=== PATIENT | female | born 1990 | race Caucasian/White ===

== ENCOUNTER 2018-03-03 19:12 | Emergency (ER) | payer OTHER ==
[2018-03-03] MEDS ORDERED: DIPHENHYDRAMINE 50 MG/ML VIAL ONE ×2 (20:01→20:08)
[2018-03-03] MEDS ORDERED: METHYLPREDNISOLONE 125 MG INJ ONE ×2 (20:01→20:08)
[2018-03-03] MEDS ORDERED: FAMOTIDINE 20 MG/2 ML VIAL IV ONE ×2 (20:01→20:09)
--- NOTE | 2018-03-03 20:52 | EDPHYS ---
Physician Documentation [facility] Name: Emile Willnigham Age: 27 yrs Sex: Female : 1990 Arrival Date: 03/03/2018 Time: 19:19 Bed 5 Private MD: ED Physician Darwin Wesley HPI: 03/03 20:16 This 27 yrs old Female presents to ER via Ambulatory with complaints of tw4 Allergic Reaction. 20:16 The patient presents with itching, swelling of the lips. Onset: The symptoms/episode tw4 began/occurred today. Associated signs and symptoms: The patient has no apparent associated signs or symptoms. Possible causes: cleaning products. At home the patient or guardian has treated the symptoms with nothing. Severity of symptoms: At their worst the symptoms were moderate in the emergency department the symptoms are unchanged. The patient has not experienced similar symptoms in the past. 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 - Social history:: Smoking status: Patient/guardian denies using tobacco. ROS: 20:16 Constitutional: Negative for fever, chills, and weight loss, Cardiovascular: Negative tw4 for chest pain, palpitations, and edema, Respiratory: Negative for shortness of breath, cough, wheezing, and pleuritic chest pain, Abdomen/GI: Negative for abdominal pain, nausea, vomiting, diarrhea, and constipation, Neuro: Negative for headache, weakness, numbness, tingling, and seizure. 20:16 Skin: Positive for rash, swelling. Exam: 20:16 Constitutional: This is a well developed, well nourished patient who is awake, alert, tw4 and in no acute distress. Head/Face: Normocephalic, atraumatic. Chest/axilla: Normal chest wall appearance and motion. Nontender with no deformity. No lesions are appreciated. Cardiovascular: Regular rate and rhythm with a normal S1 and S2. No gallops, murmurs, or rubs. Normal PMI, no JVD. No pulse deficits. Respiratory: Lungs have equal breath sounds bilaterally, clear to auscultation and percussion. No rales, rhonchi or wheezes noted. No increased work of breathing, no retractions or nasal flaring. Abdomen/GI: Soft, non-tender, with normal bowel sounds. No distension or tympany. No guarding or rebound. No evidence of tenderness throughout. 20:16 MS/ Extremity: Pulses equal, no cyanosis. Neurovascular intact. Full, normal range of motion. Neuro: Awake and alert, GCS 15, oriented to person, place, time, and situation. Cranial nerves II-XII grossly intact. Motor strength 5/5 in all extremities. Sensory grossly intact. Cerebellar exam normal. Normal gait. 20:16 ENT: Mouth: Lips: mild swelling, Posterior pharynx: is normal. Vital Signs: 19:24 BP 143 / 100; Pulse 103; Resp 18; Temp 98.4(TE); Pulse Ox 100% on R/A; Weight 70.31 kg ak1 (R); Height 5 ft. 7 in. (170.18 cm) (R); Pain 1/10; 20:21 BP 129 / 101; Pulse 79; Resp 18; Pulse Ox 100% on R/A; ea 21:00 BP 123 / 86; Pulse 68; Resp 18; Pulse Ox 100% on R/A; ea 19:24 Body Mass Index 24.28 (70.31 kg, 170.18 cm) ak1 MDM: 20:01 Patient medically screened. tw4 20:52 Differential diagnosis: anaphylaxis, angioedema, Arrhythmias urticaria. Data reviewed: tw4 vital signs, nurses notes. Counseling: I had a detailed discussion with the patient and/or guardian regarding: the historical points, exam findings, and any diagnostic results supporting the discharge/admit diagnosis. Special discussion: I discussed with the patient/guardian in detail that at this point there is no indication for admission to the hospital. It is understood, however, that if the symptoms persist or worsen the patient needs to return immediately for re-evaluation. 03/03 19:42 Order name: Saline Lock; Complete Time: 20:16 tw4 Administered Medications: 20:13 Drug: Pepcid 20 mg Route: IVP; Site: left antecubital; ea 21:00 Follow up: Response: No adverse reaction ea 20:14 Drug: Benadryl 12.5 mg Route: IVP; Site: left antecubital; ea 21:00 Follow up: Response: No adverse reaction ea 20:15 Drug: SOLU-Medrol 125 mg Route: IVP; Site: left antecubital; ea 21:18 Follow up: Response: No adverse reaction ea Disposition: 03/03/18 20:51 Discharged to Home. Impression: Urticaria, unspecified. - Condition is Stable. - Discharge Instructions: Hives, Angioedema. - Prescriptions for Medrol (Tam) 4 mg Oral Tablets, Dose Pack - take 1 tablet by ORAL route as directed - follow package instructions; 1 packet. - Work release form, Medication Reconciliation Form, Thank You Letter, Antibiotic Education, Prescription Opioid Use form. - Follow up: Private Physician; When: As needed; Reason: Recheck today's complaints, Continuance of care, Re-evaluation by your physician. - Problem is new. - Symptoms have improved. Signatures: Leonor Etienne RN RN ak1 Shelley Branch RN RN Darwin Quinn MD MD tw4 Corrections: (The following items were deleted from the chart) 21:17 20:51 03/03/2018 20:51 Discharged to Home. Impression: Urticaria, unspecified. ea Condition is Stable. Forms are Medication Reconciliation Form, Thank You Letter, Antibiotic Education, Prescription Opioid Use. Follow up: Private Physician; When: As needed; Reason: Recheck today's complaints, Continuance of care, Re-evaluation by your physician. Problem is new. Symptoms have improved. tw4
--- NOTE | 2018-03-03 20:52 | ER ---
Nurse's Notes [facility] Name: Emile Willingham Age: 27 yrs Sex: Female : 1990 Arrival Date: 03/03/2018 Time: 19:19 Bed 5 Private MD: Diagnosis: Urticaria, unspecified Presentation: 03/03 19:19 Presenting complaint: Patient states: facial swelling X 1hour. 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 pt with selling noted to bilateral eyes, lips. no resp distress noted. pt with hives to face. pt had steroid injections 02/20/18 and 02/18/18. pt dx allergic urticaria. Transition of care: patient was not received from another setting of care. Onset: The symptoms/episode began/occurred last week. Anaphylaxis evaluation, the patient reports or I have noted the following symptoms which indicate a significant risk of anaphylaxis:. Onset of symptoms was March 03, 2018. Initial Sepsis Screen: Does the patient meet any 2 criteria? No. Patient's initial sepsis screen is negative. Does the patient have a suspected source of infection? No. Patient's initial sepsis screen is negative. Care prior to arrival: None. 19:19 Method Of Arrival: Ambulatory ak1 19:19 Acuity: MERCED 4 ak1 Triage Assessment: 19:24 General: Appears in no apparent distress. Behavior is calm, cooperative. Pain: Denies ak1 pain. EENT: swelling to lips and bilateral eyes. Neuro: No deficits noted. Cardiovascular: No deficits noted. Respiratory: No deficits noted. GI: No signs and/or symptoms were reported involving the gastrointestinal system. : No signs and/or symptoms were reported regarding the genitourinary system. Derm: Reports hives X1 month. Musculoskeletal: No signs and/or symptoms reported regarding the musculoskeletal system. 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 - Social history:: Smoking status: Patient/guardian denies using tobacco. Screenin:30 Abuse screen: Denies threats or abuse. Nutritional screening: No deficits noted. ea Tuberculosis screening: No symptoms or risk factors identified. Fall Risk None identified. Assessment: 20:28 General: Appears in no apparent distress. Behavior is cooperative, anxious. Pain: ea Denies pain. Neuro: Level of Consciousness is awake, alert, obeys commands, Oriented to person, place, time, situation. Cardiovascular: Patient's skin is warm and dry. Respiratory: Airway is patent Respiratory effort is even, unlabored, Respiratory pattern is regular, symmetrical, Breath sounds are clear bilaterally. GI: No signs and/or symptoms were reported involving the gastrointestinal system. : No signs and/or symptoms were reported regarding the genitourinary system. EENT: No signs and/or symptoms were reported regarding the EENT system. EENT: No signs and/or symptoms were reported regarding the EENT system. Derm: swelling noted to upper and lower lips, pt denies SOB. Reports "It may have been the change in detergent". 21:15 Reassessment: Patient and/or family updated on plan of care and expected duration. Pain ea level reassessed. Patient is alert, oriented x 3, equal unlabored respirations, skin warm/dry/pink. Discharge instructions given to patient, verbalized the understanding of instruction. Patient states feeling better. Patient states symptoms have improved. Vital Signs: 19:24 BP 143 / 100; Pulse 103; Resp 18; Temp 98.4(TE); Pulse Ox 100% on R/A; Weight 70.31 kg ak1 (R); Height 5 ft. 7 in. (170.18 cm) (R); Pain 1/10; 20:21 BP 129 / 101; Pulse 79; Resp 18; Pulse Ox 100% on R/A; ea 21:00 BP 123 / 86; Pulse 68; Resp 18; Pulse Ox 100% on R/A; ea 19:24 Body Mass Index 24.28 (70.31 kg, 170.18 cm) ak1 ED Course: 19:19 Patient arrived in ED. ak1 19:22 Triage completed. ak1 19:24 Arm band placed on Patient placed in waiting room, Patient notified of wait time. ak1 19:26 Patient has correct armband on for positive identification. ak1 19:41 Darwin Wesley MD is Attending Physician. tw4 20:13 Shelley Branch, RN is Primary Nurse. ea 21:16 No provider procedures requiring assistance completed. IV discontinued, intact, ea bleeding controlled, No redness/swelling at site. Pressure dressing applied. Administered Medications: 20:13 Drug: Pepcid 20 mg Route: IVP; Site: left antecubital; ea 21:00 Follow up: Response: No adverse reaction ea 20:14 Drug: Benadryl 12.5 mg Route: IVP; Site: left antecubital; ea 21:00 Follow up: Response: No adverse reaction ea 20:15 Drug: SOLU-Medrol 125 mg Route: IVP; Site: left antecubital; ea 21:18 Follow up: Response: No adverse reaction ea Outcome: 20:51 Discharge ordered by . tw4 21:16 Discharged to home ambulatory. ea 21:16 Condition: improved 21:16 Discharge instructions given to patient, Instructed on discharge instructions, follow up and referral plans. medication usage, Demonstrated understanding of instructions, follow-up care, medications, Prescriptions given X 1. 21:17 Patient left the ED. ea Signatures: Leonor Etienne RN RN ak1 Shelley Branch, RN RN Darwin Quinn MD MD tw4
== END 2018-03-03 21:17 | disposition home or self-care (01) ==
LOC: ER 19:12
DX: L50.9 Urticaria, unspecified (principal); Z88.1 Allergy status to other antibiotic agents
CPT/HCPCS: 96374; 96375; 99283; J2930

== ENCOUNTER 2019-10-24 09:56 | Emergency (ER) | payer BC ==
--- OUTSIDE RECORDS SUMMARY | 2019-10-24 09:58 | XMS REPORT ---
:1990 Author Organization [employer] Care Team Providers Name Role Phone Brigida Catalan Provider Role Unavailable Allergies No Known Allergies Problems Problem Type Condition Code Onset Dates Condition Status Problem Acne vulgaris L70.0 Active Problem Yeast infection involving the B37.3 Active vagina and surrounding area Problem Mixed connective tissue disease M35.1 Active Problem PMS (premenstrual syndrome) N94.3 Active Problem Friction injury to skin T14.8XXA Active Problem Encounter for BCP ( control Z30.011 Active pills) initial prescription Problem Foreign body finger S60.459A Active Problem Foreign body of finger of right S60.459A Active hand, initial encounter Problem BCP ( control pills) Z30.011 Active initiation Problem Encounter for gynecological Z01.419 Active examination without abnormal finding Problem Lupus M32.9 Active Medications No Known Medications Results No Known Results Summary Purpose eClinicalWorks Submission
--- OUTSIDE RECORDS SUMMARY | 2019-10-24 09:58 | XMS REPORT ---
:1990 Author Organization [employer] Care Team Providers Name Role Phone Brigida Catalan Provider Role Unavailable Allergies, Adverse Reactions, Alerts Substance Reaction Event Type TriNessa (28) anger Drug Allergy Plaquenil mood swings Drug Allergy Problems Problem Type Condition Code Onset Dates Condition Status Problem Mixed connective tissue disease M35.1 Active Problem Foreign body of finger of right S60.459A Active hand, initial encounter Problem Yeast infection involving the B37.3 Active vagina and surrounding area Problem Friction injury to skin T14.8XXA Active Problem Foreign body finger S60.459A Active Problem Lesion of labia N90.89 Active Problem Lupus M32.9 Active Problem BCP ( control pills) Z30.011 Active initiation Problem Encounter for BCP ( control Z30.011 Active pills) initial prescription Problem Encounter for gynecological Z01.419 Active examination without abnormal finding Assessment Lesion of labia N90.89 Active Assessment Acne vulgaris L70.0 Active Assessment PMS (premenstrual syndrome) N94.3 Active Problem PMS (premenstrual syndrome) N94.3 Active Assessment Lupus M32.9 Active Problem Acne vulgaris L70.0 Active Medications Medication Code Code Instructions Start End Status Dosage System Date Date CycloSPORINE ND 98333341810 50 MG Orally Active as directed Modified BID Norgestim-Eth [facility] 72259734299 0.18/0.215/0.25 Active TAKE 1 TABLET Estrad MG-35 MCG BY MOUTH Triphasic Orally Once a EVERY DAY day Folic Acid ND 79225225370 1 MG Orally Active 1 tablet Once a day Ibuprofen ND 65420084966 800 MG Orally May 14, Active 1 tablet with Three times a 2016 food or milk day prn pain as needed Zyrtec Allergy ND 17654185710 10 MG Orally Active 2 tablets Once a day Kalpana-D 24 NDC 0 180mg By mouth Active 2 tabs Hour Daily Clindamycin ND 72974528658 1 % Externally Active 1 application Phosphate Once a day Centrum ND 79100781570 - Orally Daily April 09, 2015 Results No Known Results Summary Purpose eClinicalWorks Submission
--- NOTE | 2019-10-24 11:02 | EDPHYS ---
Physician Documentation [facility] Name: Emile Willingham Age: 29 yrs Sex: Female : 1990 Arrival Date: 10/24/2019 Time: 09:59 Bed 14 Private MD: ED Physician Raf Arizmendi HPI: 10/24 10:50 This 29 yrs old Female presents to ER via Ambulatory with complaints of pm1 Infection to biopsy sites. 10:50 Patient presents to ED for recheck of: biopsy site. The affected area is on the groin. pm1 Previous treatment: Biopsy at two vulval areas on Saturday by Dr. Dennis . The patient has not experienced similar symptoms in the past. Patient concerned that there might be an infection. Noticed some discharge yesterday. Has been using warm baths and reports improvement in swelling to vulval area, which was expected. No fever or redness. 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 - Social history:: Smoking status: Patient/guardian denies using tobacco. - Ebola Screening: : No symptoms or risks identified at this time. ROS: 10:50 Constitutional: Negative for fever, chills, and weight loss, Cardiovascular: Negative pm1 for chest pain, palpitations, and edema, Respiratory: Negative for shortness of breath, cough, wheezing, and pleuritic chest pain, Abdomen/GI: Negative for abdominal pain, nausea, vomiting, diarrhea, and constipation, Back: Negative for injury and pain. 10:50 MS/Extremity: Negative for injury and deformity, Skin: Negative for injury, rash, and discoloration, Neuro: Negative for headache, weakness, numbness, tingling, and seizure. 10:50 : Positive for of the groin, swelling, Negative for urinary symptoms, burning with urination, difficulty urinating, vaginal bleeding, vaginal itching. 10:50 All other systems are negative. pm1 Exam: 10:50 Constitutional: This is a well developed, well nourished patient who is awake, alert, pm1 and in no acute distress. Head/Face: Normocephalic, atraumatic. 10:50 Chest/axilla: Normal chest wall appearance and motion. Nontender with no deformity. pm1 No lesions are appreciated. Cardiovascular: Regular rate and rhythm with a normal S1 and S2. No gallops, murmurs, or rubs. Normal PMI, no JVD. No pulse deficits. Respiratory: Lungs have equal breath sounds bilaterally, clear to auscultation and percussion. No rales, rhonchi or wheezes noted. No increased work of breathing, no retractions or nasal flaring. Abdomen/GI: Soft, non-tender, with normal bowel sounds. No distension or tympany. No guarding or rebound. No evidence of tenderness throughout. Back: No spinal tenderness. No costovertebral tenderness. Full range of motion. 10:50 Skin: Warm, dry with normal turgor. Normal color with no rashes, no lesions, and no evidence of cellulitis. MS/ Extremity: Pulses equal, no cyanosis. Neurovascular intact. Full, normal range of motion. 10:50 : Pelvic Exam: External exam: no appreciated Bartholin's cyst, no erythema, not excoriated, biopsy sites without any redness, warmth, or discharge. Sutures intact. Granulation tissue present in biopsy sites, PJ RN as it consulting director. 10:50 Neuro: Orientation: is normal, Motor: is normal, moves all fours, Sensation: is normal, no obvious gross deficits. Vital Signs: 10:09 BP 138 / 81; Pulse 81; Resp 17 S; Temp 96.4(O); Pulse Ox 100% on R/A; Weight 72.57 kg jl7 (R); Height 5 ft. 7 in. (170.18 cm) (R); Pain 3/10; 11:23 BP 127 / 79; Pulse 75; Resp 16; Temp 98; Pulse Ox 99% ; bp 10:09 Body Mass Index 25.06 (72.57 kg, 170.18 cm) jl7 MDM: 10:11 Patient medically screened. pm1 10:50 Physician consultation: Sanam Dennis MD regarding consult, patient's condition, pm1 Called Dr. Dennis to inform her that her patient was here with concerns she might have an infection at her two biopsy sites. Two biopsy sites without any signs of infection present, no redness, discharge, fever. Since no signs of infection, no need for systemic antibiotics. Recommends herlinda care and topical triple antibiotic. Patient may call her answering service at anytime and call the office if any issues on Saturday. Patient has appointment for follow up on 11/03. 10:56 Data reviewed: vital signs. Data interpreted: Pulse oximetry: on room air is 100 %. pm1 Interpretation: normal. Counseling: I had a detailed discussion with the patient and/or guardian regarding: the historical points, exam findings, and any diagnostic results supporting the discharge/admit diagnosis, the need for outpatient follow up, Jeannie for any issues and keep follow up on 11/03, to return to the emergency department if symptoms worsen or persist or if there are any questions or concerns that arise at home. Administered Medications: No medications were administered Disposition: 10/24/19 10:58 Discharged to Home. Impression: Other acute postprocedural pain. - Condition is Stable. - Discharge Instructions: Skin Biopsy, Care of a Perineal Tear. - Prescriptions for Tylenol- Codeine #3 300-30 mg Oral Tablet - take 2 tablets by ORAL route every 6 hours As needed; 20 tablet. - Medication Reconciliation Form, Thank You Letter, Antibiotic Education, Prescription Opioid Use form. - Follow up: Emergency Department; When: As needed; Reason: Worsening of condition. Follow up: Private Physician; When: 2 - 3 days; Reason: Recheck today's complaints, Continuance of care, Re-evaluation by your physician. - Problem is new. - Symptoms have improved. Addendum: 10/26/2019 09:26 Co-signature as Attending Physician, Raf Arizmendi MD I agree with the assessment and c puga plan of care. Signatures: Raf Arizmendi MD MD cha Marinas, Patrick, NP OIL AND GAS FIELD TECHNICIAN pm1 Leandro Deshpande RN RN jl7 George Rodas RN RN bp Corrections: (The following items were deleted from the chart) 10/24 11:27 10:58 10/24/2019 10:58 Discharged to Home. Impression: Other acute postprocedural pain. bp Condition is Stable. Forms are Medication Reconciliation Form, Thank You Letter, Antibiotic Education, Prescription Opioid Use. Follow up: Emergency Department; When: As needed; Reason: Worsening of condition. Follow up: Private Physician; When: 2 - 3 days; Reason: Recheck today's complaints, Continuance of care, Re-evaluation by your physician. Problem is new. Symptoms have improved. pm1
--- NOTE | 2019-10-24 11:02 | ER ---
Nurse's Notes [facility] Name: Emile Willingham Age: 29 yrs Sex: Female : 1990 Arrival Date: 10/24/2019 Time: 09:59 Bed 14 Private MD: Diagnosis: Other acute postprocedural pain Presentation: 10/24 10:04 Presenting complaint: Patient states: On Saturday a vulvar biopsy by OB, 2 biopsy sites, jl7 the inner one looks infected, reports pain has been there since the procedure. Transition of care: patient was not received from another setting of care. Onset of symptoms was October 20, 2019. Risk Assessment: Do you want to hurt yourself or someone else? Patient reports no desire to harm self or others. Initial Sepsis Screen: Does the patient meet any 2 criteria? No. Patient's initial sepsis screen is negative. Does the patient have a suspected source of infection? No. Patient's initial sepsis screen is negative. Care prior to arrival: None. 10:04 Method Of Arrival: Ambulatory [facility] 10:04 Acuity: MERCED 3 jl7 Triage Assessment: 10:09 General: Appears in no apparent distress. uncomfortable, Behavior is calm, cooperative, jl7 appropriate for age. Pain: Complains of pain in groin Pain currently is 3 out of 10 on a pain scale. Is continuous. Neuro: Level of Consciousness is awake, alert, obeys commands, Oriented to person, place, time, situation. 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 - Social history:: Smoking status: Patient/guardian denies using tobacco. - Ebola Screening: : No symptoms or risks identified at this time. Screenin:21 Abuse screen: Denies threats or abuse. Denies injuries from another. Nutritional bp screening: No deficits noted. Tuberculosis screening: No symptoms or risk factors identified. Fall Risk None identified. Assessment: 10:10 General: SEE TRIAGE NOTE. bp 11:20 Reassessment: PT D/C HOME AMBULATORY, DX WITH POST-PROCEDURAL PAIN. bp Vital Signs: 10:09 BP 138 / 81; Pulse 81; Resp 17 S; Temp 96.4(O); Pulse Ox 100% on R/A; Weight 72.57 kg jl7 (R); Height 5 ft. 7 in. (170.18 cm) (R); Pain 3/10; 11:23 BP 127 / 79; Pulse 75; Resp 16; Temp 98; Pulse Ox 99% ; bp 10:09 Body Mass Index 25.06 (72.57 kg, 170.18 cm) jl7 ED Course: 09:59 Patient arrived in ED. mr 10:07 Triage completed. jl7 10:08 Mike Santos NP is PHCP. pm1 10:08 Raf Arizmendi MD is Attending Physician. pm1 10:09 Arm band placed on right wrist. jl7 10:11 George Rodas, RN is Primary Nurse. bp 11:21 Patient has correct armband on for positive identification. Bed in low position. Call bp light in reach. Side rails up X2. 11:21 No provider procedures requiring assistance completed. Patient did not have IV access bp during this emergency room visit. Wound care: to BIOPSY located on groin was dressed with 4X4s, Patient tolerated well. Administered Medications: No medications were administered Outcome: 10:58 Discharge ordered by MD. pm1 11:22 Discharged to home ambulatory. bp 11:22 Condition: stable 11:22 Discharge instructions given to patient, Instructed on discharge instructions, follow up and referral plans. medication usage, wound care, Demonstrated understanding of instructions, follow-up care, medications, wound care, Prescriptions given X 1. 11:27 Patient left the ED. bp Signatures: TrevinoLore mr Mike Santos, PERSONAL TRAINER PERSONAL TRAINER pm1 Leandro Deshpande RN RN jl7 George Rodas RN RN bp
[2019-10-24 11:52] VITALS: BP 127/79; TEMP 98; O2SAT 99
== END 2019-10-24 11:27 | disposition home or self-care (01) ==
LOC: ER 09:56
DX: G89.18 Other acute postprocedural pain (principal); Z88.1 Allergy status to other antibiotic agents
CPT/HCPCS: 99283